=== PATIENT | male | born 1980 | race Caucasian/White ===

== ENCOUNTER 2024-07-27 12:13 | Outpatient (CLI) | payer OTHER | END 2024-07-27 12:14 | disposition home or self-care (01) | LOC: CT 12:13 | PROVIDERS: ATTEND Student in an Organized Health Care Education/Training Program | DX: C18.9 Malignant neoplasm of colon, unspecified (principal); N13.30 Unspecified hydronephrosis; R59.1 Generalized enlarged lymph nodes | CPT/HCPCS: 74178 ==

== ENCOUNTER 2024-08-29 09:36 | Day surgery (SDC) | payer OTHER ==
[2024-08-29] MEDS ORDERED: Acetaminophen 500 MG TAB ONE (11:25)
[2024-08-29] MEDS ORDERED: diphenhydrAMINE 25 MG CAP ONE (11:25)
[2024-08-29] MEDS: Acetaminophen 500 MG TAB PO SCH (11:26)
[2024-08-29] MEDS: diphenhydrAMINE 25 MG CAP PO SCH (11:27)
[2024-08-29 17:04] VITALS: BP 107/58; TEMP 98
== END 2024-08-29 17:04 | disposition home or self-care (01) ==
LOC: ONC/OP 09:36
PROVIDERS: ATTEND Internal Medicine
DX: D64.9 Anemia, unspecified (principal); D69.6 Thrombocytopenia, unspecified
CPT/HCPCS: 36430; 86850; 86900; 86901; P9016

== ENCOUNTER 2024-09-04 08:21 | Outpatient (CLI) | payer OTHER | END 2024-09-04 08:22 | disposition home or self-care (01) | LOC: CT 08:21 | PROVIDERS: ATTEND Internal Medicine | DX: C18.2 Malignant neoplasm of ascending colon (principal); N13.30 Unspecified hydronephrosis; R59.0 Localized enlarged lymph nodes; K63.89 Other specified diseases of intestine | CPT/HCPCS: 71260; 74177; J1642 ==

== ENCOUNTER 2024-09-07 10:56 | Day surgery (SDC) | payer OTHER ==
[2024-09-07] MEDS ORDERED: diphenhydrAMINE 25 MG CAP PO SCH (11:15)
[2024-09-07] MEDS ORDERED: Acetaminophen 500 MG TAB ONE (11:53)
[2024-09-07] MEDS: Acetaminophen 500 MG TAB PO SCH (11:54)
[2024-09-07 14:28] VITALS: BP 98/62; TEMP 98.2
== END 2024-09-07 14:30 | disposition home or self-care (01) ==
LOC: ONC/OP 10:56
PROVIDERS: ATTEND Internal Medicine
DX: D64.9 Anemia, unspecified (principal); D69.6 Thrombocytopenia, unspecified
CPT/HCPCS: 36430; 86850; 86900; 86901; J1642; P9016

== ENCOUNTER 2024-09-17 09:44 | Day surgery (SDC) | payer OTHER ==
[2024-09-17] MEDS ORDERED: diphenhydrAMINE 25 MG CAP PO SCH (10:00)
[2024-09-17] MEDS ORDERED: Acetaminophen 500 MG TAB ONE (10:55)
[2024-09-17] MEDS: Acetaminophen 500 MG TAB PO SCH (10:56)
[2024-09-17 11:59] VITALS: TEMP 97.5
[2024-09-17 14:10] VITALS: BP 96/57
== END 2024-09-17 14:31 | disposition home or self-care (01) ==
LOC: ONC/OP 09:44
PROVIDERS: ATTEND Internal Medicine
DX: D64.9 Anemia, unspecified (principal); D69.6 Thrombocytopenia, unspecified
CPT/HCPCS: 36430; 86850; 86900; 86901; J1642; P9016

== ENCOUNTER 2024-10-04 11:44 | Outpatient (CLI) | payer OTHER | END 2024-10-04 11:45 | disposition home or self-care (01) | LOC: CT 11:44 | PROVIDERS: ATTEND Internal Medicine | DX: C18.2 Malignant neoplasm of ascending colon (principal); D50.8 Other iron deficiency anemias; K31.6 Fistula of stomach and duodenum; K63.89 Other specified diseases of intestine | CPT/HCPCS: 71260; 74177; J1642 ==